=== PATIENT | female | born 1960 | race Hispanic/Latino ===

== ENCOUNTER → 2017-05-17 | Day surgery (SDC) | payer OTHER ==
[~2017-05-17] VITALS: Ht 167.6 cm; Wt 120.0 kg
[~2017-05-17] MED LIST: 0.9% Sodium Chloride 1,000 ML IV SCH; ASPI-973 PO; INDO25CA PO; LISI1TAB11 PO; METO25TA99 PO; OMEP20TA86 PO; Sodium Chloride LOK Flush 10 mL Syringe IV PRN; TRAM50TA2 PO; fentaNYL-PF 50 mCg/mL 2 mL Inj IVPUSH PRN
[2017-05-17 14:43] VITALS: BP 136/63; PULSE 78; RESP 17; O2SAT 98
[2017-05-17 15:48] VITALS: BP 115/60; PULSE 85; RESP 16; O2SAT 100
[2017-05-17 15:59] VITALS: BP 89/50; PULSE 71; RESP 16; O2SAT 97
[2017-05-17 16:04] VITALS: BP 108/56; PULSE 81; RESP 17; O2SAT 99
--- NOTE | 2017-05-17 16:22 | ENDO ---
[address] [address] ENDOSCOPY PROCEDURE PATIENT: NESHA CORNELIUS : 1960 MR#: [id number] ADMIT: 05/17/2017 JOB ID: [id number] DATE: 05/17/2017 PROCEDURE: Colonoscopy. INDICATION: Screening. Patient's ASA classification is two. Mallampati score is two. MEDICATIONS: Versed 5 mg, fentanyl 100 mcg. INSTRUMENT USED: PCF H 180 AL. PREPARATION QUALITY: Good. PROCEDURE DETAILS: After informed consent was obtained, the patient was brought into the GI suite, where she was placed on oxygen via nasal cannula and monitored with continuous pulse oximeter, telemetry, and blood pressure monitoring. A time-out was performed, then she was placed in the left lateral decubitus position and medications were administered for sedation. Digital rectal exam was performed, which was unremarkable. The colonoscope was then inserted into the rectum and advanced under direct visualization to the cecum, which identified by the presence of the ileocecal valve and appendiceal orifice. Once the cecum was reached, the colonoscope was withdrawn back into the rectum as the mucosa and lumen were examined. In the rectum, retroflexion was performed. Following retroflexion, the remaining air in the rectum was suctioned and the procedure was completed. FINDINGS: In the transverse colon, there were two ulcers. The more proximal ulcer measured approximately 8 mm in length and approximately 2-3 mm in width. The ulcer was clean based. The surrounding mucosa was edematous and erythematous. Multiple biopsies were obtained. Just distal to this ulcer, there was an approximately 5 mm oval shaped ulcer with a clean base and with margins were erythematous and edematous. Biopsies were obtained. The remainder of the colon exam was otherwise unremarkable. IMPRESSION: Two transverse colon ulcers. RECOMMENDATIONS: 1. Await biopsy results. 2. Follow up in GI Clinic. 3. Avoid NSAIDs if able. COMPLICATIONS: None. ESTIMATED BLOOD LOSS: Less than 5 mL.
== END | disposition home or self-care (01) ==
LOC: END 00:19
PROVIDERS: ATTEND Internal Medicine Gastroenterology
DX: Z12.11 Encounter for screening for malignant neoplasm of colon (principal); K63.3 Ulcer of intestine; K52.9 Noninfective gastroenteritis and colitis, unspecified; I10 Essential (primary) hypertension; E11.9 Type 2 diabetes mellitus without complications; E11.40 Type 2 diabetes mellitus with diabetic neuropathy, unspecified; E66.01 Morbid (severe) obesity due to excess calories; R60.9 Edema, unspecified; R76.8 Other specified abnormal immunological findings in serum; Z68.41 Body mass index [BMI] 40.0-44.9, adult
CPT/HCPCS: 45380; 99153; G0500; J2250; J3010; J7030